=== PATIENT | female | born 1990 | race Caucasian/White ===

== ENCOUNTER 2018-03-18 12:00 | Emergency (ER) | payer SELFPAY ==
[2018-03-18 12:09] VITALS: BP 127/81
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
== END 2018-03-18 12:37 | disposition home or self-care (01) ==
LOC: ED 12:00
DX: T22.039A Burn of unspecified degree of unspecified upper arm, initial encounter (principal); X58.XXXA Exposure to other specified factors, initial encounter; Y93.G3 Activity, cooking and baking; Y92.89 Other specified places as the place of occurrence of the external cause; Y99.9 Unspecified external cause status
CPT/HCPCS: 99282